=== PATIENT | male | born 1965 | race Caucasian/White ===

== ENCOUNTER → 2018-02-28 | Outpatient (CLI) | payer OTHER ==
[~2018-02-28] VITALS: Ht 182.9 cm; Wt 91.2 kg
[~2018-02-28] MED LIST: ASPIRIN81 M2 PO; DOXYCYCLINE 10100 MG PO; OMEPRAZOLE40 MG PO; QUINAPRIL HCL10 MG PO; ZOLOFT100 MG PO
--- NOTE | ~2018-02-28 | HC ---
[facility] [place] [address] CONSULTATION Name: CECILE WILSON Room #: REG Xenia Bernard#: [id number] Admission: 02/28/18 Attend Phys: Mike Topete Discharge: Date of : 63 Report #: [id number] THIS REPORT FOR: //name// CC: Mike Castano MD DATE OF SERVICE: 02/28/2018 REASON FOR CONSULTATION: Positive Lyme serology. HISTORY OF PRESENT ILLNESS: The patient is a 52-year-old white man who became well ill 2-3 weeks prior to visiting with Dr. Monet Castano with complaints of being unwell and having experienced symptoms of feverishness, sore throat, postnasal discharge, cervical and armpit lymph nodes and dark urine and soft stools. The patient had an extensive serologic workup that revealed later on that he had positive remote Lyme serologic findings compatible with previous Lyme infection. At the initial office visit, the patient was diagnosed to have acute sinusitis and was treated with doxycycline 100 mg p.o. 2 times daily for 14 days. The patient recognizes not taking the medication properly. Also tells me he has experienced some epigastric discomfort on the first 2 days of taking the medication. Currently, the patient is definitely feeling better with less body aches and pains, no feverishness, still some dark urine and still some right-sided canker sores, which were more prominent when he initially visited Dr. Monet Castano on 02/14/2018. PAST MEDICAL HISTORY: Hypertension. Left adrenal nodule by CT scan in 11/2017, pulmonary nodules in 11/2017, hiatal hernia. Bilateral inguinal hernia repair. Tonsillectomy. Deviated septoplasty repair, left rotator cuff surgery, cholecystectomy 05/19/2015. SOCIAL HISTORY: . Two children. No tobacco. Occasional alcohol. 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 He might have been exposed to ticks either in [place] or [place] because he tends to horseback ride during his visit to those places. Obviously, he could have been exposed to ticks here as well. DRUG ALLERGIES: None listed. MEDICATIONS: Omeprazole 40 mg daily for gastroesophageal reflux, Zoloft 100 mg daily for depression and insomnia, quinapril 10 mg daily for hypertension, aspirin 81 mg daily and lately doxycycline 100 b.i.d. FAMILY HISTORY: Father with Alzheimer. Mother with lung cancer, history of tobacco use. Has a brother and 3 sisters alive and well. [address] [address] CONSULTATION Name: CECILE WILSON Room #: REG [facility] Joana#: [id number] Admission: 02/28/18 Attend Phys: Mike Topete Discharge: Date of : 63 Report #: [id number] REVIEW OF SYSTEMS: The patient's aches and pain is better, still having sore throat and some tenderness on right side of neck. PHYSICAL EXAMINATION: GENERAL: This is a well-developed, not toxic looking white man in no distress. VITAL SIGNS: Weight 201 pounds, height 6 feet, BP 130/93, pulse 79, temperature 98.8, O2 saturation 94%. HEENMT: Head normocephalic, atraumatic. Pupils reactive. Conjunctivae normal. Mouth: No thrush. No hairy leukoplakia, a small superficial ulceration mucosal aspect, right cheek. NECK: Some tenderness on right side of neck. I most definitely do not feel any palpable lymph nodes. LYMPHATIC: There are no supraclavicular, axillary, or inguinal adenopathy. LUNGS: Clear to auscultation. HEART: S1, S2. No gallops or murmur. ABDOMEN: Soft, no masses or megaly. GENITALIA: Normal testicles, epididymis. RECTAL: Deferred. EXTREMITIES: No clubbing, cyanosis. NEUROLOGIC: Grossly within normal limits. LABORATORY DATA: The patient's chemistry profile revealed the following abnormal: SGOT 64 international unit/liter (0-40) and SGPT 86 international unit/liter (0-44). Hepatitis A, B and C serologies were negative. The patient's CBCs reveal a WBC of 6900, hemoglobin 14.4 g/dL, mild thrombocytopenia of 142,000 (150,000-379,000). The white blood cell count differential revealed 65% lymphocytes, otherwise normal. Blackwood spotted fever serology negative. Ehrlichia chaffeensis serology negative. Parvovirus B19 IgG serology positive at 6.7 and IgM serology negative indicating remote infection. Lyme serology IgG positive by IgG Western blot testing and IgM serology negative indicating remote infection. The granulocytic ehrlichiosis serology negative and monocytic ehrlichiosis serology negative as well. The urinalysis normal. ASSESSMENT: 1. Serologic evidence of remote Lyme disease infection. 2. Serologic evidence of remote Parvovirus B19 infection. 3. Recent possible viral infection with sore throat, feverishness, mild thrombocytopenia and atypical lymphocytosis, improving. 4. Hypertension. 5. Hiatal hernia. 6. 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 SUGGESTIONS: At present, the patient relates that he is already getting better. My only concerns that his CBC has revealed some mild thrombocytopenia, both atypical lymphocytosis that possibly indicated viral infection, which per the [facility] [address] [address] CONSULTATION Name: CECILE WILSON Room #: REG DAPHNEY Bernard#: [id number] Admission: 02/28/18 Attend Phys: Mike Topete Discharge: Date of : 63 Report #: [id number] patient's history is getting better. The remote serologic evidence of Lyme disease possibly will be treated with doxycycline 100 mg b.i.d. for approximately 21 days. He was already prescribed doxycycline 100 mg b.i.d. #28 and I wrote a new prescription for doxycycline 100 mg b.i.d., #20. Discussed with the patient the side effects of the reaction from this medication, particularly the issue of esophagitis. He also will be extra careful not to take these antibiotics close to calcium, magnesium, aluminum or iron containing medications. I request he had a repeat CBC with differential, ESR, CRP and liver function tests. He will call on Monday to check those results. I will send a copy of this office visit to Dr. Monet Castano and I will gladly discuss my recommendation and findings with her if necessary. <ELECTRONICALLY SIGNED> By: Mike Shepard MD 03/02/18 [id number] Mike Shepard MD /nt
[2018-02-28 10:07] VITALS: BP 130/93
[2018-02-28 11:39] LABS: HEMATOCRIT 42.7 % (42.0-52.0); HEMOGLOBIN 14.7 gm/dL (14.0-18.0); MCH 31.6 pg (26.0-34.0); MCHC 34.5 g/dL (28.0-37.0); MCV 91.7 fL (80.0-100.0); PLATELET COUNT 176 thou/uL (150-400); RBC 4.65 mil/uL (4.50-6.00); RDW 13.4 % (10.5-14.5)
[2018-02-28 12:01] LABS: ALBUMIN 3.6 g/dL (3.4-5.0); DIRECT BILIRUBIN < 0.1 mg/dL (<0.1-0.3); SGOT 42 U/L (15-37); SGPT 75 U/L (30-65); TOTAL BILIRUBIN 0.4 mg/dL (<0.1-1.0); TOTAL PROTEIN 7.8 g/dL (6.4-8.2)
[2018-02-28 12:36] LABS: ABSOLUTE NEUTROPHILS 2.4 thou/uL (1.4-8.2); ANISOCYTOSIS SLIGHT; ATYPICAL LYMPHS 15 %
== END ==
LOC: SEN 08:22
PROVIDERS: Internal Medicine Infectious Disease
DX: A69.20 Lyme disease, unspecified (principal); I10 Essential (primary) hypertension; B34.3 Parvovirus infection, unspecified; M16.0 Bilateral primary osteoarthritis of hip; N40.2 Nodular prostate without lower urinary tract symptoms; K44.9 Diaphragmatic hernia without obstruction or gangrene